=== PATIENT | male | born 1970 | race Caucasian/White ===

== ENCOUNTER 2018-09-20 15:48 | Emergency (ER) | payer MEDICARE, MEDICAID ==
--- OUTSIDE RECORDS SUMMARY | 2018-09-20 16:08 | XMS REPORT | Continuity of Care Document ---
:1970 External Reference #:[id number] Author Name Katelynn Zapata Care Team Providers Name Role Phone Shey Riley M.D. 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 Primary Care Physician Unavailable Payers Type Date Identification Numbers Payment Provider Subscriber Policy Number: [id number] Medicare Roger Hansen PayID: [id number] [address] [place] [address] Policy Number: [id number] Medicaid Roger Hansen PayID: [id number] [address] [place] [address] Advance Directives Description No Information Available Problems Date Description Provider Status Onset: 03/25/2012 Dysfunction of eustachian tube Jovani Hewitt M.D. Active Onset: 03/25/2012 Peripheral vertigo Jovani Hewitt M.D. Active Onset: 03/25/2012 Sensorineural hearing loss Michelle Hathaway PA Active Onset: 06/28/2015 Other specified disorders of Jovani Hewitt M.D. Active Eustachian tube, bilateral Family History Date Family Member(s) Problem(s) Comments General Hearing Loss General Diabetes Social History Type Date Description Comments Sex Unknown Marital Status Single ETOH Use Quit Using Alcohol. Recreational Drug Use Never Used Drugs Tobacco Use Start: Unknown Patient has never smoked Allergies, Adverse Reactions, Alerts Description No Known Drug Allergies Medications Medication Date Status Form Strength Qnty SIG Indications Ordering Provider Lisinopril Active Tablets 20mg qday Unknown /0000 Iron 0000 Active Tablets 325(65Fe) Am & PM Unknown /0000 mg Sertraline HCL Active Tablets 25mg 1 tab by Unknown /0000 mouth twice a day Omeprazole Active Capsules DR 40mg 1 by mouth Unknown /0000 daily Meclizine HCL Active Tablets as needed Unknown Coumadin Active Tablets 10mg Acetaminophen Active Tablets 325mg 1 by mouth Unknown as need for tooth pain Oxycodone HCL Active Tablets takes 1 by Unknown mouth as need for tooth pain Hydroxychloroquin Active Tablets 200mg 1 by mouth Unknown e bid Allopurinol Active Tablets 100mg 1 by mouth Unknown every day Loperamide HCL Active Tablets 2mg by mouth Unknown after each unformed bm (max 8 times daily) Ciprodex 04/07 Hx Suspension 0.3-0.1% 1bott 5 drops le twice a Jovani, - day x 10 M.D. 05/27 days right ear Ciprodex 08/05 Hx Suspension 0.3-0.1% 7.500 5 drops ml twice a Jovani, - day x 10 M.D. 04/06 days right ear Ciprodex 04/20 Hx Suspension 0.3-0.1% 7.500 5 drops ml twice a Jovani, - day x 10 M.D. 06/27 days right ear Ciprodex 03/16 Hx Suspension 0.3-0.1% 1unit 5 drops s left ear Jovani, - twice a M.D. 04/19 day Zaleplon 12/08 Hx Capsules 10mg 2caps take 1 capsule 15 Jovani, - minutes M.D. 04/19 prior to bedtime. Valium 01/11 Hx Tablets 2mg 30tab one tab s twice Jovani, - daily for M.D. 05/29 Diazepam 12/20 Hx Tablets 2mg 10tab 1 po hs s Jovani, - M.D. 05/29 Prednisone 11/14 Hx Tablets 10mg 5tabs 1 po qam Jovani, - M.D. 12/20 Astepro 11/14 Hx Solution 0.15% 3unit 2 sprays s each Jovani, - nostrils 1 M.D. Dyazide 08/22 Hx Capsules 37.5-25mg 30cap 1 po qd Hewitt s Arnol Hahn M.DRowena 10/19 Meclizine HCL 00/00 Hx Tablets 30tab 1 po q 6 Unknown / s hours prn - dizzyness 10/19 Meclizine HCL 00/00 Hx Tablets 30tab Unknown / s - 05/29 Amoxicillin Hx Capsules 500mg 14cap Unknown / s - 12/20 Dyazide Hx Capsules 37.5-25mg 60cap 1 po qd Unknown / s - 11/14 Triamterene/[place] Hx Capsules 37.5-25mg 1 po qd Unknown chlorothiazide / - 04/16 Fluoxetine Hx Capsules 10mg qd Unknown / - 05/15 Omeprazole Hx Capsules 20mg qday Unknown / - 04/19 Colace Hx Capsules 100mg Unknown / - 05/15 Levetiracetam Hx Tablets 500mg Unknown / - 05/15 Carbamazepine Hx Tablets 200mg 60tab 1 po bid - 05/15 Citalopram Hx Tablets 20mg Unknown Hydrobromide / - 05/15 Levothyroxine Hx Tablets 25mcg 1 po qd Unknown Sodium / - 04/19 Zoloft Hx Tablets 50mg 30tab 1 po qd Unknown s - 04/19 Coumadin Hx Tablets 6mg Daily Unknown / - 04/19 Immunizations Description No Information Available Vital Signs Date Vital Result Comment 09/11/2018 9:39am Weight 277.00 lb Height 71.5 inches 5'11.50" BMI (Body Mass Index) 38.1 kg/m2 BP Systolic 129 mmHg BP Diastolic 79 mmHg Heart Rate 77 /min O2 % BldC Oximetry 96 % Body Temperature 96.7 F Pain Level 5 07/29/2018 1:36pm Weight 276.00 lb Height 71.5 inches 5'11.50" BMI (Body Mass Index) 38.0 kg/m2 BP Systolic 116 mmHg BP Diastolic 76 mmHg Heart Rate 69 /min O2 % BldC Oximetry 98 % Body Temperature 97.1 F Pain Level 0 05/28/2018 3:27pm Weight 272.00 lb Height 71.5 inches 5'11.50" BMI (Body Mass Index) 37.4 kg/m2 BP Systolic 130 mmHg BP Diastolic 82 mmHg Heart Rate 78 /min O2 % BldC Oximetry 96 % Body Temperature 97.8 F Pain Level 0 04/07/2016 2:35pm Weight 291.12 lb Height 71.5 inches 5'11.50" BMI (Body Mass Index) 40.0 kg/m2 BP Systolic 126 mmHg BP Diastolic 68 mmHg Heart Rate 88 /min O2 % BldC Oximetry 98 % Body Temperature 98.6 F 01/06/2016 1:24pm Weight 289.12 lb Height 71.5 inches 5'11.50" BMI (Body Mass Index) 39.8 kg/m2 BP Systolic 120 mmHg BP Diastolic 80 mmHg Heart Rate 75 /min O2 % BldC Oximetry 97 % Body Temperature 97.5 F 11/01/2015 3:51pm Weight 282.00 lb Height 71.5 inches 5'11.50" BMI (Body Mass Index) 38.8 kg/m2 Heart Rate 85 /min O2 % BldC Oximetry 98 % Body Temperature 96.0 F 08/05/2015 4:13pm Weight 278.00 lb Height 71.5 inches 5'11.50" BMI (Body Mass Index) 38.2 kg/m2 BP Systolic 132 mmHg BP Diastolic 84 mmHg Heart Rate 88 /min O2 % BldC Oximetry 98 % Body Temperature 97.6 F 06/28/2015 3:46pm Weight 271.00 lb Height 71.5 inches 5'11.50" BMI (Body Mass Index) 37.3 kg/m2 BP Systolic 126 mmHg BP Diastolic 78 mmHg Heart Rate 83 /min O2 % BldC Oximetry 97 % Body Temperature 98.2 F 04/27/2015 4:53pm Body Temperature 97.4 F 04/20/2015 4:25pm Weight 291.00 lb Height 71.5 inches 5'11.50" BMI (Body Mass Index) 40.0 kg/m2 BP Systolic 158 mmHg BP Diastolic 90 mmHg Heart Rate 88 /min O2 % BldC Oximetry 96 % Body Temperature 98.7 F 03/23/2014 1:10pm BP Systolic 128 mmHg BP Diastolic 86 mmHg Heart Rate 81 /min O2 % BldC Oximetry 96 % Body Temperature 97.3 F Pain Level 2 03/16/2014 1:21pm Weight 265.38 lb Height 71.5 inches 5'11.50" BMI (Body Mass Index) 36.5 kg/m2 BP Systolic 120 mmHg Heart Rate 91 /min O2 % BldC Oximetry 98 % Body Temperature 98.0 F 12/08/2013 1:55pm Weight 269.00 lb Height 71.5 inches 5'11.50" BMI (Body Mass Index) 37.0 kg/m2 BP Systolic 126 mmHg BP Diastolic 84 mmHg Heart Rate 86 /min O2 % BldC Oximetry 98 % Body Temperature 98.0 F Col[place] Point Score 04/09 Neck Circumference in inches 18" 06/19/2013 2:58pm Weight 267.00 lb Height 71.5 inches 5'11.50" BMI (Body Mass Index) 36.7 kg/m2 BP Systolic 128 mmHg BP Diastolic 84 mmHg Heart Rate 105 /min O2 % BldC Oximetry 97 % Body Temperature 97.0 F 04/16/2013 2:32pm Weight 260.00 lb BP Systolic 120 mmHg BP Diastolic 84 mmHg Heart Rate 93 /min O2 % BldC Oximetry 97 % Body Temperature 97.7 F 05/29/2012 9:46am Weight 255.00 lb Height 71.5 inches 5'11.50" BMI (Body Mass Index) 35.1 kg/m2 BP Systolic 122 mmHg BP Diastolic 80 mmHg Heart Rate 98 /min O2 % BldC Oximetry 98 % Body Temperature 97.0 F 05/06/2012 8:08am Weight 254.00 lb Height 71.5 inches 5'11.50" BMI (Body Mass Index) 34.9 kg/m2 BP Systolic 128 mmHg BP Diastolic 82 mmHg 03/25/2012 2:37pm Weight 256.25 lb Height 71.5 inches 5'11.50" BMI (Body Mass Index) 35.2 kg/m2 BP Systolic 124 mmHg BP Diastolic 86 mmHg Heart Rate 76 /min O2 % BldC Oximetry 100 % Body Temperature 98.3 F 01/12/2012 3:19pm Weight 268.00 lb Height 71.5 inches 5'11.50" BMI (Body Mass Index) 36.9 kg/m2 BP Systolic 124 mmHg BP Diastolic 86 mmHg Heart Rate 75 /min O2 % BldC Oximetry 100 % Body Temperature 98.4 F 12/20/2010 8:59am Weight 243.38 lb Height 71.5 inches 5'11.50" BMI (Body Mass Index) 33.5 kg/m2 BP Systolic 146 mmHg BP Diastolic 78 mmHg Heart Rate 90 /min O2 % BldC Oximetry 94 % Body Temperature 96.3 F 11/14/2010 9:22am BP Systolic 130 mmHg BP Diastolic 88 mmHg Body Temperature 97.0 F 08/22/2010 1:53pm Weight 250.00 lb Height 71.5 inches 5'11.50" BMI (Body Mass Index) 34.4 kg/m2 BP Systolic 134 mmHg BP Diastolic 70 mmHg Heart Rate 80 /min Body Temperature 96.0 F Results Test Date Facility Test Result H/L Range Note Basic Metabolic Panel 05/15/2013 [facility] Glucose 96 mg/dL 76-115 [address] [place] [address] [phone] BUN 22 mg/dL 5-23 Creatinine 1.0 mg/dL 0.5-1.4 Glom Filtration Rate, Estimate >60 mL/min >60 If >60 mL/min >60 1 BUN/Creat 22.0 ratio Sodium 142 mmol/L 136-145 Potassium 4.2 mmol/L 3.5-5.1 Chloride 107 mmol/L 98-107 Carbon Dioxide 26 mEq/L 18-29 Anion Gap 13 mEq/L 8-16 Calcium 8.9 mg/dL 8.5-10.1 CBC 05/15/2013 [facility] White Blood Count 6.3 K/uL 3.4- 10.5 [address] [place] [address] [phone] Red Blood Count 4.84 M/uL 4.20-5.80 Hemoglobin 13.5 gm/dL 12.8-17.0 Hematocrit 39.3 % 38.0-48.0 Mean Cell Volume 81.2 fl 80.0-96.0 Mean Corpuscular HGB 27.9 pg 27.0-33.0 Mean Corpuscular HGB Conc 34.4 g/dL 31.7-36.0 Platelet Count 238 K/uL 150-400 Red Cell Distri Width %CV 14.1 % 11.6-15.8 Mean Platelet Volume 10.3 fL 6.6-10.6 Urine Screen 05/15/2013 [facility] Urine Color YELLOW Yellow [address] [place] [address] [phone] Urine Clarity CLEAR Clear Urine Glucose - Dipstick NEGATIVE mg/dL Negative Urine Bilirubin - Dipstick NEGATIVE Negative Urine Ketone NEGATIVE mg/dL Negative Urine Specific [place] >=1.030 1.010-1.030 Urine Blood NEGATIVE Negative Urine PH 5.5 Low 6.5-7.5 Urine Protein - Dipstick NEGATIVE mg/dL Negative Urine Urobilinogen - Dipstick 0.2 E.U./dL 0.2-1.0 Urine Nitrite - Dipstick NEGATIVE Negative Urine Leuk Esterase NEGATIVE Negative CBC 04/12/2012 [facility] White Blood Count 6.1 K/uL 3.4- 10.5 [address] [place] [address] [phone] Red Blood Count 4.81 M/uL 4.20-5.80 Hemoglobin 14.1 gm/dL 12.8-17.0 Hematocrit 40.1 % 38.0-48.0 Mean Cell Volume 83.4 fl 80.0-96.0 Mean Corpuscular HGB 29.3 pg 27.0-33.0 Mean Corpuscular HGB Conc 35.2 g/dL 31.7-36.0 Platelet Count 228 K/uL 150-400 Red Cell Distri Width %CV 14.0 % 11.6-15.8 Mean Platelet Volume 10.0 fL 6.6-10.6 Urine Screen 04/12/2012 [facility] Urine Color YELLOW Yellow [address] [place] [address] [phone] Urine Clarity CLEAR Clear Urine Glucose - Dipstick NEGATIVE mg/dL Negative Urine Bilirubin - Dipstick NEGATIVE Negative Urine Ketone NEGATIVE mg/dL Negative Urine Specific [place] >=1.030 1.010-1.030 Urine Blood NEGATIVE Negative Urine PH 5.5 Low 6.5-7.5 Urine Protein - Dipstick NEGATIVE mg/dL Negative Urine Urobilinogen - Dipstick 0.2 E.U./dL 0.2-1.0 Urine Nitrite - Dipstick NEGATIVE Negative Urine Leuk Esterase NEGATIVE Negative 1 Note: Persistent reduction for 3 months or more in an eGFR <60 mL/min/1.73 m2 defines CKD. Patients with eGFR values >/=60 mL/min/1.73 m2 may also have CKD if evidence of persistent proteinuria is present. The original MDRD equation for estimated GFR is not valid for patients less than 18 years of age. Additional information may be found at www.k[facility].org. Procedures Date Code Description Status 05/28/2018 53635 Tympanometry Completed 05/28/2018 56852 Audiometry, Comprehensive Completed 04/07/2016 32907 Nasal Endoscopy, Diag. Completed 01/06/2016 12924 Tympanometry Completed 01/06/2016 45220 Audiometry, Comprehensive Completed 11/01/2015 78240 Tympanometry Completed 11/01/2015 95007 Audiometry, Comprehensive Completed 09/01/2015 89663 Tympanostomy, Gen. Anesth. Completed 09/01/2015 56548 Anesthesia, Tympanotomy Completed 05/22/2013 25103 Tympanostomy, Gen. Anesth. Completed 04/16/2013 41381 Tympanometry Completed 04/16/2013 50822 Audiometry, Comprehensive Completed 06/06/2012 62177 Caloric Vestibular Test W/Recording Completed 06/06/2012 30651 Basic Vestibular Eval Completed 05/29/2012 19511 Audiometry, Comprehensive Completed 05/29/2012 60481 Tympanometry Completed 04/18/2012 59118 Tympanostomy, Gen. Anesth. Completed 04/18/2012 54238 Tympanostomy, Gen. Anesth. Completed 02/15/2012 54503 Audiometry, Comprehensive Completed 02/15/2012 15009 Tympanometry And Reflex Thres Completed 02/15/2012 48386 Caloric Vestibular Test W/Recording Completed 02/15/2012 54925 Basic Vestibular Eval Completed 12/20/2010 46105 Audiometry, Comprehensive Completed 12/20/2010 73020 Tympanometry And Reflex Thres Completed 11/14/2010 98576 Nasal Endoscopy, Diag. Completed 10/19/2010 47648 Tympanometry Completed 10/19/2010 52888 Audiometry, Comprehensive Completed 08/04/2010 79667 Audiometry, Comprehensive Completed 08/04/2010 15822 Tympanometry And Reflex Thres Completed 08/04/2010 64433 Caloric Vestibular Test W/Recording Completed 08/04/2010 29896 Basic Vestibular Eval Completed Encounters Type Date Location Provider Dx Diagnosis Office Visit 07/29/2018 Main Office Jovani Hewitt M.D. H69.92 Unspecified 2:30p Eustachian tube disorder, left ear R42 Dizziness and giddiness Office Visit 05/28/2018 3:30p Main Office Jovani Hewitt M.D. R42 Dizziness and giddiness H90.3 Sensorineural hearing loss, bilateral Office Visit 04/18/2016 2:15p Main Office Jovani Hewitt, H65.23 Chronic serous M.D. otitis media, bilateral J34.3 Hypertrophy of nasal turbinates J34.2 Deviated nasal septum Office Visit 04/07/2016 2:30p Main Office Jovani Hewitt H90.3 Sensorineural hearing M.D. loss, bilateral H65.23 Chronic serous otitis media, bilateral J34.2 Deviated nasal septum J34.3 Hypertrophy of nasal turbinates J34.89 Other specified disorders of nose and nasal sinuses Office Visit 01/06/2016 1:15p Main Office Telma Talbot H90.3 Sensorineural hearing Moss, [employer] loss, bilateral H69.83 Other specified disorders of Eustachian tube, bilateral Office Visit 11/01/2015 3:45p Main Office Telma Talbot H90.3 Sensorineural hearing Moss, [employer] loss, bilateral H69.83 Other specified disorders of Eustachian tube, bilateral Office Visit 08/05/2015 4:15p Main Office Jovani Hewitt, H69.83 Other specified M.D. disorders of Eustachian tube, bilateral H66.93 Otitis media, unspecified, bilateral Office Visit 06/28/2015 3:45p Main Office Jovani Hewitt, H69.83 Other specified M.D. disorders of Eustachian tube, bilateral H65.23 Chronic serous otitis media, bilateral J34.2 Deviated nasal septum Office Visit 04/27/2015 5:00p Main Office Jovani Hewitt, 381.81 Eustachian Tube M.D. Dysfunction 381.10 Otitis Media Simple Or Unspec Chronic Office Visit 04/20/2015 4:30p Main Office Jovani Hewitt, 381.10 Otitis Media M.D. Simple Or Unspec Chronic 381.81 Eustachian Tube Dysfunction Office Visit 03/23/2014 1:00p Main Office Telma A 381.10 Otitis Media Simple Moss, [employer] Or Unspec Chronic Office Visit 03/16/2014 1:15p Main Office Telma A 381.81 Eustachian Tube Moss, [employer] Dysfunction Office Visit 12/08/2013 1:45p Main Office Rivas, 786.09 Dyspnea & Michelle, PA Respiratory Abnormalities Other 470 Deviated Nasal Septum 780.50 Sleep Disturbance Unspec 780.79 Malaise And Fatigue Other Office Visit 06/19/2013 3:00p Main Office Michelle Hathaway, 780.4 Dizziness & PA Giddiness 381.81 Eustachian Tube Dysfunction Office Visit 04/16/2013 2:30p Main Office Jovani Hewitt, 389.16 Sensorineural Hearing M.D. Loss, Asymmetrical 381.81 Eustachian Tube Dysfunction Office Visit 05/29/2012 10:00a Main Office Rivas 389.10 Hearing Loss Michelle, PA Sensorineural Unspec 381.81 Eustachian Tube Dysfunction Office Visit 05/06/2012 8:15a Main Office Jovani Hewitt, 381.81 Eustachian Tube M.D. Dysfunction 381.10 Otitis Media Simple Or Unspec Chronic 386.10 Vertigo Peripheral Unspec Office Visit 03/25/2012 2:15p Main Office Jovani Hewitt, 381.81 Eustachian Tube M.D. Dysfunction 386.10 Vertigo Peripheral Unspec Office Visit 01/12/2012 3:30p Main Office Jovani Hewitt, 386.10 Vertigo Peripheral M.D. Unspec 389.10 Hearing Loss Sensorineural Unspec 381.81 Eustachian Tube Dysfunction 470 Deviated Nasal Septum Office Visit 12/20/2010 9:15a Main Office Jovani Hewitt, 386.10 Vertigo Peripheral M.D. Unspec 389.10 Hearing Loss Sensorineural Unspec 381.81 Eustachian Tube Dysfunction Office Visit 11/14/2010 9:30a Main Office Jovani Hewitt, 389.10 Hearing Loss M.D. Sensorineural Unspec 386.10 Vertigo Peripheral Unspec 381.81 Eustachian Tube Dysfunction 470 Deviated Nasal Septum Office Visit 10/19/2010 9:15a Main Office Jovani Hewitt, 389.10 Hearing Loss M.D. Sensorineural Unspec 386.10 Vertigo Peripheral Unspec Office Visit 08/22/2010 2:00p Main Office Jovani Hewitt, 389.10 Hearing Loss M.D. Sensorineural Unspec 386.10 Vertigo Peripheral Unspec Plan of Treatment No Information Available
--- OUTSIDE RECORDS SUMMARY | 2018-09-20 16:08 | XMS REPORT | Continuity of Care Document ---
:1970 External Reference #:[id number] Author Name Katelynn Zapata Care Team Providers Name Role Phone Shey Riley M.D. 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 Primary Care Physician Unavailable Payers Type Date Identification Numbers Payment Provider Subscriber Policy Number: [id number] Medicare Roger Hansen PayID: [id number] [address] [place] [address] Policy Number: [id number] Medicaid Roger Hansen PayID: [id number] [address] [place] [address] Advance Directives Description No Information Available Problems [...] Form Strength Qnty SIG Indications Ordering Provider Ciprodex 09/12 Active Suspension 0.3-0.1% 7.500 5 drops Kash Angela ml twice a Jovani, day x 10 M.D. days affected ear Lisinopril Active Tablets 20mg qday Unknown /0000 Iron 00 Active Tablets 325(65Fe) Am & PM Unknown /0000 mg Sertraline HCL Active Tablets 25mg 1 tab by Unknown mouth twice a day Omeprazole Active Capsules DR 40mg 1 by mouth Unknown daily Meclizine HCL Active Tablets as needed Unknown Coumadin Active Tablets 10mg Unknown Acetaminophen Active Tablets 325mg 1 by mouth [...] Solution 0.15% 3unit 2 sprays s each Jovani - nostrils 1 M.D. Dyazide 08/22 Hx Capsules 37.5-25mg 30cap 1 po qd Hewitt, s Jovani - M.D. 10/19 Meclizine HCL 00 Hx Tablets 30tab 1 po q 6 Unknown / s hours prn - dizzyness 10/19 Meclizine HCL 00 Hx Tablets 30tab Unknown / s - 05/29 Amoxicillin Hx Capsules 500mg 14cap Unknown / s - 12/20 Dyazide Hx Capsules 37.5-25mg 60cap 1 po qd Unknown / s - 11/14 Triamterene/Ada Hx Capsules 37.5-25mg 1 po qd Unknown chlorothiazide / - 04/16 Fluoxetine Hx Capsules 10mg qd Unknown / - 05/15 Omeprazole Hx Capsules 20mg qday Unknown / - 04/19 Colace Hx Capsules 100mg Unknown / - 05/15 Levetiracetam Hx Tablets 500mg Unknown / - 05/15 Carbamazepine Hx Tablets 200mg 60tab 1 po bid Unknown / s - 05/15 Citalopram Hx Tablets 20mg Unknown Hydrobromide / - 05/15 Levothyroxine Hx Tablets 25mcg 1 po qd Unknown Sodium / - 04/19 Zoloft Hx Tablets 50mg 30tab 1 po qd Unknown / s - 04/19 Coumadin Hx Tablets 6mg Daily Unknown / - 04/19 Immunizations Description No Information Available Vital Signs Date Vital Result Comment 09/19/2018 10:01am Weight 276.00 lb Height 71.5 inches 5'11.50" BMI (Body Mass Index) 38.0 kg/m2 BP Systolic 125 mmHg BP Diastolic 91 mmHg Heart Rate 87 /min O2 % BldC Oximetry 95 % Body Temperature 96.9 F Pain Level 0 09/11/2018 9:39am Weight 277.00 lb Height 71.5 [...] Oximetry 98 % Body Temperature 98.0 F [place] Score 7/24 Neck Circumference in inches 18" 06/19/2013 2:58pm [...] H/L Range Note Basic Metabolic Panel 05/15/2013 [facility] Glucose 96 mg/dL 76-115 [address], [place] [id number] [phone] BUN 22 mg/dL 5-23 Creatinine 1.0 mg/dL 0.5-1.4 Glom Filtration Rate, Estimate >60 mL/min >60 If >60 mL/min >60 1 BUN/Creat 22.0 ratio Sodium 142 mmol/L 136-145 Potassium 4.2 mmol/L 3.5-5.1 Chloride 107 mmol/L 98-107 Carbon Dioxide 26 mEq/L 18-29 Anion Gap 13 mEq/L 8-16 Calcium 8.9 mg/dL 8.5-10.1 CBC 05/15/2013 [facility] White Blood Count 6.3 K/uL 3.4- 10.5 [address] [place] [address] [phone] Red Blood Count 4.84 M/uL 4.20-5.80 Hemoglobin 13.5 gm/dL 12.8-17.0 Hematocrit 39.3 % 38.0-48.0 Mean Cell Volume 81.2 fl 80.0-96.0 Mean Corpuscular HGB 27.9 pg 27.0-33.0 Mean Corpuscular HGB Conc 34.4 g/dL 31.7-36.0 Platelet Count 238 K/uL 150-400 Red Cell Distri Width %CV 14.1 % 11.6-15.8 Mean Platelet Volume 10.3 fL 6.6-10.6 Urine Screen 05/15/2013 [facility] Urine Color YELLOW Yellow [address] [place] [address] [phone] Urine Clarity CLEAR Clear Urine Glucose - Dipstick NEGATIVE mg/dL Negative Urine Bilirubin - Dipstick NEGATIVE Negative Urine Ketone NEGATIVE mg/dL Negative Urine Specific [place] >=1.030 1.010-1.030 Urine Blood NEGATIVE Negative Urine PH 5.5 Low 6.5-7.5 Urine Protein - Dipstick NEGATIVE mg/dL Negative Urine Urobilinogen - Dipstick 0.2 E.U./dL 0.2-1.0 Urine Nitrite - Dipstick NEGATIVE Negative Urine Leuk Esterase NEGATIVE Negative CBC 04/12/2012 [facility] White Blood Count 6.1 K/uL 3.4- 10.5 [address] [place] [address] [phone] Red Blood Count 4.81 M/uL 4.20-5.80 Hemoglobin 14.1 gm/dL 12.8-17.0 Hematocrit 40.1 % 38.0-48.0 Mean Cell Volume 83.4 fl 80.0-96.0 Mean Corpuscular HGB 29.3 pg 27.0-33.0 Mean Corpuscular HGB Conc 35.2 g/dL 31.7-36.0 Platelet Count 228 K/uL 150-400 Red Cell Distri Width %CV 14.0 % 11.6-15.8 Mean Platelet Volume 10.0 fL 6.6-10.6 Urine Screen 04/12/2012 [facility] Urine Color YELLOW Yellow [address] [place] [address] [phone] Urine Clarity CLEAR Clear Urine Glucose - Dipstick NEGATIVE mg/dL Negative Urine Bilirubin - Dipstick NEGATIVE Negative Urine Ketone NEGATIVE mg/dL Negative Urine Specific [place] >=1.030 1.010-1.030 Urine Blood NEGATIVE Negative Urine [...] [email or web address]. Procedures Date Code Description Status 05/28/2018 89149 Tympanometry Completed 05/28/2018 31426 Audiometry, Comprehensive Completed 04/07/2016 35240 Nasal Endoscopy, Diag. Completed 01/06/2016 36278 Tympanometry Completed 01/06/2016 73625 Audiometry, Comprehensive Completed 11/01/2015 63911 Tympanometry Completed 11/01/2015 35086 Audiometry, Comprehensive Completed 09/01/2015 31366 Tympanostomy, Gen. Anesth. Completed 09/01/2015 82477 Anesthesia, Tympanotomy Completed 05/22/2013 89622 Tympanostomy, Gen. Anesth. Completed 04/16/2013 35662 Tympanometry Completed 04/16/2013 33497 Audiometry, Comprehensive Completed 06/06/2012 98696 Caloric Vestibular Test W/Recording Completed 06/06/2012 62858 Basic Vestibular Eval Completed 05/29/2012 86285 Audiometry, Comprehensive Completed 05/29/2012 12071 Tympanometry Completed 04/18/2012 07073 Tympanostomy, Gen. Anesth. Completed 04/18/2012 35182 Tympanostomy, Gen. Anesth. Completed 02/15/2012 34316 Audiometry, Comprehensive Completed 02/15/2012 56331 Tympanometry And Reflex Thres Completed 02/15/2012 61919 Caloric Vestibular Test W/Recording Completed 02/15/2012 08475 Basic Vestibular Eval Completed 12/20/2010 11242 Audiometry, Comprehensive Completed 12/20/2010 70555 Tympanometry And Reflex Thres Completed 11/14/2010 63874 Nasal Endoscopy, Diag. Completed 10/19/2010 90936 Tympanometry Completed 10/19/2010 07653 Audiometry, Comprehensive Completed 08/04/2010 88863 Audiometry, Comprehensive Completed 08/04/2010 58966 Tympanometry And Reflex Thres Completed 08/04/2010 41310 Caloric Vestibular Test W/Recording Completed 08/04/2010 61416 Basic Vestibular Eval Completed Encounters Type Date Location Provider Dx Diagnosis Office Visit 07/29/2018 Main Office Jovani Hewitt M.D. H69.92 Unspecified 2:30p Eustachian tube disorder, left ear R42 Dizziness and giddiness Office Visit 05/28/2018 3:30p Main Office Jovani Hewitt M.D. R42 Dizziness and giddiness H90.3 Sensorineural hearing loss, bilateral Office Visit 04/18/2016 2:15p Main Office Jovani Hewitt H65.23 Chronic serous M.D. 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 disorders of Eustachian tube, bilateral H66.93 Otitis media, unspecified, bilateral Office Visit 06/28/2015 3:45p Main Office Jovani Hewitt H69.83 Other specified M.D. disorders of Eustachian [...] Telma A 381.10 Otitis Media Simple Moss, PATROL INSPECTOR Or Unspec Chronic Office Visit 03/16/2014 1:15p Main Office Telma A 381.81 Eustachian Tube Moss, PATROL INSPECTOR Dysfunction Office Visit 12/08/2013 1:45p Main Office [...]
[2018-09-20 17:06] VITALS: BP 116/61
--- NOTE | 2018-09-20 21:01 | UC ---
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 Underwent PNA vaccination yesterday to L upper arm, developed redness, warmth, pain this AM after injection. prior h/o PNA vaccination 2 years ago with out complication. no fever, chills. no recent IV. H/o ear infection 2 weeks ago, no sequelae. - History of Current Complaint Chief Complaint: UCSkin Stated Complaint: PNEUMONIA SHOT 1/3 - SITE CONCERN Hx Obtained From: Patient Onset/Duration: Sudden Onset, Lasting Hours, Still Present Skin Exposure Onset/Duration: Hours Ago - within past 12 hours Onset Severity: Mild Current Severity: Moderate Pain Intensity: 6 Pain Scale Used: 0-10 Numeric Location: Discrete Aggravating Factor(s): Touch - Allergy/Home Medications Allergies/Adverse Reactions: Allergies Allergy/AdvReac Type Severity Reaction Status Date / Time No Known Allergies Allergy Verified 09/20/18 16:56 Home Medications: Home Medications Escitalopram Oxalate [Lexapro 10 mg] 1 tab DAILY 09/20/18 [History Confirmed 01/03] Furosemide TAB* [Lasix TAB*] 1 tab DAILY 09/20/18 [History Confirmed 09/20/18] Hydroxychloroquine TAB* [Plaquenil TAB*] 1 tab BID 09/20/18 [History Confirmed 09/20/18] Levothyroxine TAB* [Synthroid 125 MCG TAB*] 1 tab DAILY 09/20/18 [History Confirmed 09/20/18] Lisinopril/HCTZ 10/12.5(NF) [Zestoretic 10/12.5(NF)] 1 tab DAILY 09/20/18 [ History Confirmed 09/20/18] Loperamide CAP* [Imodium CAP*] 1 tab BID PRN 09/20/18 [History Confirmed ] Warfarin TAB(*) [Coumadin TAB(*)] 6 mg EVERY OTHER DAY 09/20/18 [History Confirmed 09/20/18] Warfarin TAB(*) [Coumadin TAB(*)] 7 mg EVERY OTHER DAY 09/20/18 [History Confirmed 09/20/18] PMH/Surg Hx/FS Hx/Imm Hx Previously Healthy: No - multiple co-mordities including DVT - Surgical History Surgical History: None - Social History Alcohol Use: None Substance Use Type: None Smoking Status (MU): Never Smoked Tobacco Review of Systems All Other Systems Reviewed And Are Negative: Yes Skin: Positive: Rash Is Patient Immunocompromised?: No Physical Exam Triage Information Reviewed: Yes Appearance: Well-Appearing, No Pain Distress, Well-Nourished Vital Signs: Initial Vital Signs Temp 97.6 F 09/20/18 17:00 Pulse 78 09/20/18 17:00 Resp 16 09/20/18 17:00 BP 116/61 09/20/18 17:00 Pulse Ox 98 09/20/18 17:00 Vital Signs Reviewed: Yes Eyes: Positive: Conjunctiva Clear Neurological Exam: Normal Neurological: Positive: Other: - SITLT Psychological Exam: Normal Skin: Positive: Other - erythematous, mildly raised region over L bicep area, warm to touch, TTP, radial/ ulnar pulses 2+, SITLT, inspector structural bonding strength intact, in L axillary raised, erythematous rash with associated satellite lesions consistent with yeast. small erythematous blanching area where injection was given, not associated in larger erythematous patch. area of small erythema in noelle pattern over L scapula, non-tender. Course/Dx - Course Course Of Treatment: due to large amount of erythema rapidly spreading over past 12 hours, unable to determine if secondary to infection or allergic reaction, further evaluation needed. advised to go to [facility] - Diagnoses Provider Diagnosis: Cellulitis Discharge - Sign-Out/Discharge Documenting (check all that apply): Patient Departure All imaging exams completed and their final reports reviewed: No Studies - Discharge Plan Condition: Good Disposition: TRANS HIGHER LVL OF CARE FAC Patient Education Materials: Cellulitis (ED) Referrals: Shey Riley MD [Primary Care Provider] - Additional Instructions: - Unable to asses cause, needs further work up, sent to ER. - Billing Disposition and Condition Condition: GOOD Disposition: Trans Higher Lvl of Care Fac
== END 2018-09-20 17:32 | disposition short-term general hospital (02) ==
LOC: UCCORT 15:48
DX: L03.114 Cellulitis of left upper limb (principal); I82.503 Chronic embolism and thrombosis of unspecified deep veins of lower extremity, bilateral; Z79.01 Long term (current) use of anticoagulants
CPT/HCPCS: 99212; G0463

== ENCOUNTER 2019-05-25 09:51 | Emergency (ER) | payer MEDICAID, MEDICARE ==
--- OUTSIDE RECORDS SUMMARY | 2019-05-25 10:00 | XMS REPORT | Continuity of Care Document ---
:1970 External Reference #:[id number] Author Name Jovani Hewitt M.D. (transmitted by agent of provider Elizabeth Hameed) Address [address] [place] [address] Care Team Providers Name Role Phone Shey Riley M.D. 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 Onset: 03/25/2012 Peripheral vertigo Jovani Hewitt M.D. Onset: 03/25/2012 Sensorineural hearing loss Michelle Hathaway PA Onset: 03/25/2012 Other specified disorders of Eustachian Jovani Hewitt M.D. Onset: 06/28/2015 tube, bilateral Social History Type Date Description Comments Sex Unknown ETOH Use Quit Using Alcohol. Recreational Drug Use Never Used Drugs Tobacco Use Start: Unknown Patient has never smoked Allergies, Adverse Reactions, Alerts Description No Known Drug Allergies Medications Active Medications SIG Qnty Indications Ordering Date Provider Lisinopril qday Unknown 20mg Tablets Iron Am & PM Unknown 325(65Fe) mg Tablets Sertraline HCL 1 tab by mouth Unknown 25mg Tablets twice a day Omeprazole 1 by mouth daily Unknown 40mg Capsules DR Meclizine HCL as needed Unknown Tablets Coumadin Unknown 10mg Tablets Acetaminophen 1 by mouth as Unknown 325mg Tablets need for tooth pain Oxycodone HCL takes 1 by mouth Unknown Tablets as need for tooth pain Hydroxychloroquine Sulfate 1 by mouth bid Unknown 200mg Tablets Allopurinol 1 by mouth every Unknown 100mg Tablets day Loperamide HCL by mouth after Unknown 2mg Tablets each unformed bm (max 8 times daily) Immunizations Description No Information Available Vital Signs Date Vital Result Comment 05/01/2019 2:23pm Weight 290.50 lb Height 71.5 inches 5'11.50" BMI (Body Mass Index) 39.9 kg/m2 BP Systolic 127 mmHg BP Diastolic 84 mmHg Heart Rate 82 /min O2 % BldC Oximetry 97 % Body Temperature 97.4 F Pain Level 0 10/31/2018 4:20pm Weight 276.00 lb Height 71.5 inches 5'11.50" BMI (Body Mass Index) 38.0 kg/m2 Heart Rate 94 /min O2 % BldC Oximetry 96 % Body Temperature 98.1 F Pain Level 0 Results Description No Information Available Procedures Description No Information Available Medical Devices Description No Information Available Encounters Description No Information Available Assessments Description No Information Available Plan of Treatment No Information Available Functional Status Description No Information Available Mental Status Description No Information Available Referrals Description No Information Available
[2019-05-25 10:05] VITALS: BP 146/79
--- NOTE | 2019-05-25 10:15 | UC ---
[facility] HPI - HPI Summary HPI Summary: 49 year old male presents with one day history of right lower tooth pain/jaw swelling. Sx started last night. + known h/o dental caries. Rates pain as 10/ 10. Tried Tylenol otc without relief. He is on warfarin for the past 7 years due to DVT Right LE. Last INR was 2.5 about 3 weeks ago. Due for repeat INR next week. - History of Current Complaint Chief Complaint: UCDentalProblem Stated Complaint: RIGHT JAW/ORAL PAIN Time Seen by Provider: 05/25/19 09:59 Hx Obtained From: Patient Onset/Duration: Sudden Onset Pain Intensity: 10 - Allergies/Home Medications Allergies/Adverse Reactions: Allergies Allergy/AdvReac Type Severity Reaction Status Date / Time No Known Allergies Allergy Verified 05/25/19 10:02 Home Medications: Home Medications Acetaminophen [Tylenol Extra Strength] 1,000 mg PO ONCE 05/25/19 [History Confirmed 05/25/19] PMH/Surg Hx/FS Hx/Imm Hx - Additional Past Medical History Additional PMH: SLE Previously Healthy: Yes Cardiovascular History: Hypertension, Deep Vein Thrombosis Respiratory History: Pulmonary Embolism - Surgical History Surgical History: Yes Surgery Procedure, Year, and Place: ear tubes - Family History Known Family History: Positive: Non-Contributory - Social History Alcohol Use: None Substance Use Type: None Smoking Status (MU): Never Smoked Tobacco Review of Systems All Other Systems Reviewed And Are Negative: Yes Constitutional: Positive: Negative Skin: Negative: Rash, Bruising Eyes: Negative: Blurred Vision, Eye Redness ENT: Positive: Dental Pain - Right lower jaw with swelling. Negative: Epistaxis , Sore Throat, Ear Ache Cardiovascular: Negative: Palpitations, Chest Pain Gastrointestinal: Negative: Abdominal Pain, Vomiting, Diarrhea, Nausea Musculoskeletal: Positive: Negative Neurological: Negative: Headache, Weakness Is Patient Immunocompromised?: No - is on hydroxycholorquine Physical Exam Triage Information Reviewed: Yes Appearance: Well-Appearing, Obese Vital Signs: Initial Vital Signs Temp 97.2 F 05/25/19 10:02 Pulse 81 05/25/19 10:02 Resp 17 05/25/19 10:02 BP 146/79 05/25/19 10:02 Pulse Ox 100 05/25/19 10:02 Vital Signs Reviewed: Yes ENT: Positive: Pharynx normal, TMs normal, Dental tenderness - right lower jaw. Negative: Tonsillar swelling, Tonsillar exudate Dental: Positive: Percussion Tenderness @ - right lower jaw, Gross Decay/Caries @ - right lower. Negative: Cervical Lymphadenopathy, Bleeding Neck: Positive: Supple, Nontender, No Lymphadenopathy Respiratory: Positive: Lungs clear, Normal breath sounds, No respiratory distress. Negative: Crackles, Rhonchi, Wheezing Cardiovascular: Positive: RRR, No Murmur Abdomen Description: Positive: Nontender, Soft Musculoskeletal: Positive: Strength Intact, ROM Intact, No Edema, Other: - No erythema of lower extremeities. Chronic veonus changes of Right lower extremity. Neurological: Positive: Alert Skin: Negative: Rashes Images Dental: 1 - black Dental Complaint Course/Dx - Differential Dx/Diagnosis Differential Diagnosis/Dx: Dental Caries Provider Diagnosis: Dental abscess Discharge ED - Sign-Out/Discharge Documenting (check all that apply): Patient Departure All imaging exams completed and their final reports reviewed: No Studies - Discharge Plan Condition: Stable Disposition: HOME Prescriptions: Amoxicillin PO (*) [Amoxicillin 500 MG CAP*] 500 mg PO TID 10 Days #30 cap Hydrocodone/Acetaminophen [Hydrocodone-Acetamin 5-325 mg] 1 tab PO Q6H PRN 3 Days #12 tablet MDD 4 TBS PRN Reason: Pain - Severe Patient Education Materials: Dental Abscess (ED) Referrals: Shey Riley MD [Primary Care Provider] - Additional Instructions: Take antibiotics for dental abcess. You also have been prescribed 3 days of pain medication until the antibiotic takes effect. Make and appointment with your dentist for definitive treatment of your teeth. INR (Coumadin level) should be checked within the next week. If you notice bleeding, contact your primary care provider immediately. - Billing Disposition and Condition Condition: STABLE Disposition: Home
== END 2019-05-25 10:39 | disposition home or self-care (01) ==
LOC: UCCORT 09:51
DX: K04.7 Periapical abscess without sinus (principal); I82.501 Chronic embolism and thrombosis of unspecified deep veins of right lower extremity; Z79.01 Long term (current) use of anticoagulants; M32.9 Systemic lupus erythematosus, unspecified; I10 Essential (primary) hypertension
CPT/HCPCS: 99212; G0463